=== PATIENT | male | born 1980 | race Caucasian/White ===

== ENCOUNTER 2017-10-27 08:33 | Day surgery (SDC) | payer OTHER ==
[2017-10-27] MEDS ORDERED: SOD CHLORIDE 0.9% 1,000 ML IV (11:00)
[2017-10-27] MEDS ORDERED: CEFAZOLIN 2 GM/50 ML (PMX) 50 ML IVPB (11:00)
[2017-10-27] MEDS ORDERED: LABETALOL HCL 20MG INJ IV (11:30)
[2017-10-27] MEDS ORDERED: MEPERIDINE 25 MG INJ IV (11:30)
[2017-10-27] MEDS ORDERED: OXYCODONE/ACETAMINOPHEN (5/325) TAB PO ×2 (11:30)
[2017-10-27] MEDS ORDERED: MIDAZOLAM 1 MG/ML 2 ML INJ IV (11:30)
[2017-10-27] MEDS ORDERED: IPRATROPIUM (NEB) 0.5 MG/2.5 ML AMP HHN (11:30)
[2017-10-27] MEDS ORDERED: hydrALAzine 20 MG INJ IV (11:30)
[2017-10-27] MEDS ORDERED: TRIMETHOBENZAMIDE 100 MG/ML VIAL IM (11:30)
[2017-10-27] MEDS ORDERED: EPHEDrine SULFATE 50 MG/5 ML SYG IV (11:30)
[2017-10-27] MEDS ORDERED: DIPHENHYDRAMINE 50 MG INJ IV (11:30)
[2017-10-27] MEDS ORDERED: HYDROmorphONE 1 MG/5 ML IV SYRINGE IV ×3 (11:30)
[2017-10-27] MEDS ORDERED: ALBUTEROL 0.083% (NEB) 2.5 MG/3 ML AMP HHN (11:30)
[2017-10-27] MEDS ORDERED: FENTAnyl 50 MCG/ML VIAL IV ×3 (11:30)
[2017-10-27] MEDS ORDERED: ONDANSETRON 4 MG INJ IV (11:30)
[2017-10-27] MEDS ORDERED: CEFAZOLIN 1 GM INJ (11:45)
[2017-10-27] MEDS ORDERED: FENTAnyl 50 MCG/ML VIAL (11:47)
[2017-10-27] MEDS ORDERED: KETOROLAC 30 MG INJ (11:47)
[2017-10-27] MEDS ORDERED: ONDANSETRON 4 MG INJ (12:01)
[2017-10-27] MEDS: LIDOCAINE 2% (MDV) 20 ML INJ (12:08)
[2017-10-27] MEDS: BUPIVACAINE 0.25% (MPF) 30 ML INJ (12:08)
[2017-10-27] MEDS ORDERED: HYDROCODONE/APAP (5/325) TAB PO (12:30)
== END 2017-10-27 13:44 | disposition home or self-care (01) ==
LOC: SDS 08:33
DX: D17.0 Benign lipomatous neoplasm of skin and subcutaneous tissue of head, face and neck (principal); I10 Essential (primary) hypertension
CPT/HCPCS: 14041; 88307

== ENCOUNTER 2018-09-20 02:17 | Emergency (ER) | payer OTHER ==
[2018-09-20] MEDS: ONDANSETRON (ODT) 4 MG TAB ODT ×2 (02:37→03:03)
[2018-09-20] MEDS: HYDROCODONE/APAP (10/325) TAB PO ×2 (02:37→03:04)
[2018-09-20] MEDS: KETOROLAC 30 MG INJ IM (03:49)
== END 2018-09-20 03:50 | disposition home or self-care (01) ==
LOC: E/R 02:17
DX: S92.011A Displaced fracture of body of right calcaneus, initial encounter for closed fracture (principal); J45.909 Unspecified asthma, uncomplicated; V49.40XA Driver injured in collision with unspecified motor vehicles in traffic accident, initial encounter
CPT/HCPCS: 29515; 73610-RT; 96372; 99284-25